=== PATIENT | female | born 1990 | race American Indian/Alaskan Native ===

== ENCOUNTER 2020-05-20 23:57 | Emergency (ER) | payer SELFPAY ==
[2020-05-21 00:53] VITALS: BP 113/77
--- NOTE | 2020-05-21 01:56 | XRay Report ---
CHEST 2 VIEWS INDICATION / CLINICAL INFORMATION: chestpain. FINDINGS: SUPPORT DEVICES: None. HEART / MEDIASTINUM: No significant abnormality. LUNGS / PLEURA: No significant pulmonary or pleural abnormality. No pneumothorax. ADDITIONAL FINDINGS: No significant additional findings. IMPRESSION: 1. No acute findings. Signer Name: Myron Peters MD Signed: 05/21/2020 1:52 AM Workstation Name: [id number]
== END 2020-05-21 02:38 | disposition left against medical advice (07) ==
LOC: ED 23:57
DX: R07.89 Other chest pain (principal); Z53.21 Procedure and treatment not carried out due to patient leaving prior to being seen by health care provider
CPT/HCPCS: 71046; 93005